=== PATIENT | male | born 1975 | race African-American/Black ===

== ENCOUNTER 2017-03-21 21:49 | Emergency (ER) | payer OTHER ==
[~2017-03-21] VITALS: Ht 172.7 cm; Wt 92.6 kg
[2017-03-22 01:28] VITALS: BP 132/91
== END 2017-03-22 01:29 | disposition home or self-care (01) ==
LOC: EME 21:49
PROC: 0RSKXZZ Reposition Left Shoulder Joint, External Approach (ICD-10-PCS; principal; 2017-03-22)
DX: S43.002A Unspecified subluxation of left shoulder joint, initial encounter (principal); W01.0XXA Fall on same level from slipping, tripping and stumbling without subsequent striking against object, initial encounter; Y93.89 Activity, other specified; Z87.891 Personal history of nicotine dependence
CPT/HCPCS: 73030; 99281; 99285; J3010

== ENCOUNTER 2017-10-08 16:45 | Emergency (ER) | payer OTHER ==
[~2017-10-08] VITALS: Ht 175.3 cm; Wt 87.2 kg
[2017-10-08] MEDS ORDERED: NORCO 5/3251 TABLET PO (21:50)
[2017-10-08] MEDS ORDERED: MOTRIN600 MG PO (21:50)
[2017-10-08 22:25] VITALS: BP 126/85
== END 2017-10-08 22:26 ==
LOC: EME 16:45
PROC: 0RSKXZZ Reposition Left Shoulder Joint, External Approach (ICD-10-PCS; principal; 2017-10-08)
DX: M24.412 Recurrent dislocation, left shoulder (principal); S70.02XA Contusion of left hip, initial encounter; B20 Human immunodeficiency virus [HIV] disease; F31.9 Bipolar disorder, unspecified; W10.9XXA Fall (on) (from) unspecified stairs and steps, initial encounter; Z87.891 Personal history of nicotine dependence; Z98.890 Other specified postprocedural states; Z85.9 Personal history of malignant neoplasm, unspecified; Z88.5 Allergy status to narcotic agent
CPT/HCPCS: 73030; 99281; 99284; J3010

== ENCOUNTER 2017-11-29 23:59 | Emergency (ER) | payer OTHER ==
[~2017-11-29] VITALS: Ht 170.2 cm; Wt 90.0 kg
[~2017-11-29 23:59] MED LIST: MOTRIN600 MG PO; NORCO 5/3251 TABLET PO
[2017-11-30 00:58] LABS: HEMATOCRIT 39.8 % (38.0-50.0); HEMOGLOBIN 13.8 G/DL (12.5-16.6); MCH 31.2 PG (29.0-34.0); MCHC 34.7 G/DL (30.0-36.0); MCV 89.8 FL (86-99); PLATELET COUNT 251 K/uL (156-360); RBC DIS.WIDTH-CV 11.6 % (11.8-14.6); RBC DIS.WIDTH-SD 37.9 % (39-53); RED BLOOD COUNT 4.43 M/uL (4.00-5.50); WHITE BLOOD COUNT 4.9 K/uL (4.1-10.2)
[2017-11-30 02:15] LABS: ALBUMIN 4.1 g/dL (3.2-4.8); CHLORIDE 97 mEq/L (99-109); POTASSIUM 4.5 mEq/L (3.7-5.4); SODIUM 130 mEq/L (136-147)
[2017-11-30 02:18] LABS: GLUCOSE 92 mg/dL (70-99); TOTAL PROTEIN 7.5 g/dL (6.4-8.3)
[2017-11-30 02:20] LABS: TOTAL BILIRUBIN 0.2 mg/dL (0.0-1.0)
[2017-11-30 02:21] LABS: ALKALINE PHOSPHATASE 95 IU/L (3-129); CREATININE 0.8 mg/dL (0.6-1.3); GFR ESTIMATE (CALCULATED) > 59 mL/min/ (58.99-99999)
[2017-11-30 02:22] LABS: UREA NITROGEN (BUN) 9 mg/dL (9-23)
[2017-11-30 02:23] LABS: AST (GOT) 15 IU/L (2-34)
[2017-11-30 02:24] LABS: ALT (GPT) 20 IU/L (3-49)
[2017-11-30 07:46] VITALS: BP 140/87
== END 2017-11-30 07:46 | disposition home or self-care (01) ==
LOC: EME → EDBD 23:59 → EME 23:59
PROVIDERS: Emergency Medicine
PROC: 05HA33Z Insertion of Infusion Device into Left Brachial Vein, Percutaneous Approach (ICD-10-PCS; principal; 2017-11-30)
DX: L03.319 Cellulitis of trunk, unspecified (principal); B20 Human immunodeficiency virus [HIV] disease; F31.9 Bipolar disorder, unspecified; Z87.891 Personal history of nicotine dependence; Z85.47 Personal history of malignant neoplasm of testis; Z87.438 Personal history of other diseases of male genital organs; Z98.890 Other specified postprocedural states; Z88.5 Allergy status to narcotic agent
CPT/HCPCS: 72192; 76870; 80053; 81003; 85027; 99281; 99285; J0690; J1885; J3370; J7030

== ENCOUNTER 2018-02-18 19:36 | Emergency (ER) | payer OTHER ==
[~2018-02-18] VITALS: Ht 172.7 cm; Wt 86.1 kg
[2018-02-18 23:31] VITALS: BP 122/85
== END 2018-02-18 23:34 ==
LOC: EME → EDBD 19:36 → EME 23:34
PROC: 0RSKXZZ Reposition Left Shoulder Joint, External Approach (ICD-10-PCS; principal; 2018-02-18)
DX: S43.005A Unspecified dislocation of left shoulder joint, initial encounter (principal); W01.0XXA Fall on same level from slipping, tripping and stumbling without subsequent striking against object, initial encounter; Z88.5 Allergy status to narcotic agent
CPT/HCPCS: 73030; 99281; 99285; J3010; J7030